=== PATIENT | female | born 1970 | race African-American/Black ===

== ENCOUNTER 2024-05-17 16:52 | Emergency (ER) | payer BC ==
[~2024-05-17] VITALS: Ht 167.6 cm; Wt 89.8 kg
[2024-05-17] MEDS ORDERED: AMLO-430 PO (17:07)
[2024-05-17] MEDS ORDERED: DESV100T PO (17:07)
[2024-05-17 17:32] LABS: BASOPHILS # (AUTO) 0.1 K/UL (0.0-0.2); BASOPHILS % (AUTO) 1.3 % (0.0-2.0); EOSINOPHILS # (AUTO) 0.2 K/uL (0.0-0.7); EOSINOPHILS % (AUTO) 4.5 % (0.0-7.0); HEMOGLOBIN 11.7 g/dL (10.9-14.3); LYMPHOCYTES # (AUTO) 1.3 K/uL (0.8-4.8); LYMPHOCYTES % (AUTO) 27.2 % (20.5-51.5); MEAN CORPUSCULAR HGB CONC 32 g/dL (32.3-35.6); MEAN CORPUSCULAR VOLUME 79.1 fL (75.5-95.3); MONOCYTES % (AUTO) 22.2 % (0.0-11.0); NEUTROPHILS # (AUTO) 2.1 K/uL (1.8-8.9); NEUTROPHILS % (AUTO) 44.8 % (38.5-71.5); PLATELET COUNT (AUTO) 404 K/uL (179-408); RED BLOOD CELL COUNT(AUTO) 4.68 MIL/uL (3.63-4.92); RED CELL DISTRIBUTION WIDTH 18.9 % (12.3-17.7); WHITE BLOOD COUNT (AUTO) 4.6 K/uL (3.8-11.8)
[2024-05-17 17:34] LABS: DIFFERENTIAL COMMENT 1
[2024-05-17] MEDS ORDERED: AZITHROMYCIN 250 MG TABLET ONE ×2 (17:35→18:10)
[2024-05-17 17:38] LABS: CALCIUM 8.7 mg/dL (8.5-10.1); CREATININE 0.9 mg/dL (0.6-1.3); POTASSIUM 3.3 mmol/L (3.5-5.1)
[2024-05-17] MEDS: AZITHROMYCIN 250 MG TABLET PO ONE ×2 (17:39→18:11)
[2024-05-17 17:44] LABS: ALBUMIN 3.3 g/dL (3.4-5.0); BILIRUBIN,DIRECT 0.1 mg/dL (0.0-0.2); BILIRUBIN,TOTAL 0.3 mg/dL (0.2-1.0); TOTAL PROTEIN, SERUM 7.2 g/dL (6.4-8.2)
[2024-05-17] MEDS ORDERED: POTASSIUM BICARBONATE/CIT AC 25 MEQ TABLET.EFF ONE (17:51)
[2024-05-17 17:53] LABS: LYMPHOCYTES % (MANUAL) 27 % (20-40); MONOCYTES % (MANUAL) 14 % (2-10); NEUTROPHILS % (MANUAL) 59 % (42-75); PLATELET ESTIMATE ADEQUATE
[2024-05-17] MEDS: POTASSIUM BICARBONATE/CIT AC 25 MEQ TABLET.EFF PO ONE (17:53)
[2024-05-17 17:54] LABS: ANISOCYTOSIS 1+; HYPOCHROMASIA 1+; TEAR DROP CELLS 1+
[2024-05-17] MEDS ORDERED: LOPERAMIDE HCL 2 MG CAPSULE ONE (18:10)
[2024-05-17] MEDS: LOPERAMIDE HCL 2 MG CAPSULE PO ONE (18:11)
[2024-05-17] MEDS ORDERED: DICY10CA13 PO (18:16)
[2024-05-17] MEDS ORDERED: LOPE2TAB25 PO (18:16)
[2024-05-17 18:38] VITALS: BP 135/62; O2SAT 98
[2024-05-21] MEDS ORDERED: VANC125C5 PO (08:51)
== END 2024-05-17 18:39 | disposition home or self-care (01) ==
LOC: ER 16:52
DX: R19.7 Diarrhea, unspecified (principal); Z79.899 Other long term (current) drug therapy; Z60.2 Problems related to living alone
CPT/HCPCS: 36415; 70030-TC; 83690; 85025; 89055; A4606; A4663; Q0144